=== PATIENT | female | born 1995 | race American Indian/Alaskan Native ===

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

== ENCOUNTER 2017-03-25 10:10 | Emergency (ER) | payer SELFPAY ==
[2017-03-25 10:14] VITALS: BP 123/67
== END 2017-03-25 15:46 | disposition left against medical advice (07) ==
LOC: ED 10:10
DX: J11.1 Influenza due to unidentified influenza virus with other respiratory manifestations (principal); Z53.21 Procedure and treatment not carried out due to patient leaving prior to being seen by health care provider

== ENCOUNTER 2019-01-08 13:27 | Emergency (ER) | payer SELFPAY ==
--- NOTE | 2019-01-08 14:52 | Emergency Department Report ---
Blank Doc - Documentation Documentation: 23-year-old female that presents with vaginal discharge and pelvic pain. This initial assessment/diagnostic orders/clinical plan/treatment(s) is/are subject to change based on patient's health status, clinical progression and re- assessment by fellow clinical providers in the ED. Further treatment and workup at subsequent clinical providers discretion. Patient/guardians urged not to elope from the ED as their condition may be serious if not clinically assessed and managed. Initial orders include: 1- Patient sent to [facility] for further evaluation and treatment 2- UA 3- pelvic exam to be done
[2019-01-08 16:43] LABS: HCG Qualitative,Urine Negative (Negative)
[2019-01-08 16:47] LABS: Bacteria,Urine 3+ /HPF (Negative); Bilirubin,Urine NEG (Negative); Blood,Urine NEG (Negative); Color,Urine Yellow (Yellow); Mucus,Urine 2+ /HPF
--- NOTE | 2019-01-08 17:33 | Emergency Department Report ---
ED Female HPI - General Chief complaint: Urogenital-Female Stated complaint: CRAMPS/PAIN Time Seen by Provider: 01/08/19 14:51 Source: patient Mode of arrival: Ambulatory Limitations: No Limitations - History of Present Illness Initial comments: This is a 23-year-old -[place]ian female who presents to the emergency room with pelvic cramps and vaginal discharge for 2 weeks. Patient states she meant appointment with a women's clinic in [place] and unable to get an appointment until 2 weeks from now. She reports increasing pelvic pain that is constant cramping intensity. Her last menstrual period was 12/27/2018, 0. She denies urinary frequency, urgency, dysuria, fever, chills, nausea or vomiting. MD Complaint: vaginal discharge, pelvic pain, possible STD Onset/Timin -: week(s) Location: suprapubic Radiation: non-radiating Severity: mild Severity scale (0 -10): 3 Quality: cramping Consistency: constant Improves with: none Worsens with: none Are you Now?: No Last Menstrual Period: 12/27/18 EDC: 10/03/19 Associated Symptoms: vaginal discharge, abdominal pain. denies: vaginal bleeding, nausea/vomiting, fever/chills, headaches, loss of appetite, dysuria, hematuria, rash, seizure, shortness of breath, syncope, weakness - Related Data Sexually active: Yes : 0 Previous Rx's Medication Instructions Recorded Last Taken Type Naproxen [Naprosyn] 500 mg PO BID #14 tablet 03/19/18 Unknown Rx Sulfamethoxazole/Trimethoprim 1 each PO BID #6 tablet 01/08/19 Unknown Rx [Bactrim DS TAB] metroNIDAZOLE [Metronidazole] 250 mg PO BID #14 tablet 01/08/19 Unknown Rx Allergies Allergy/AdvReac Type Severity Reaction Status Date / Time No Known Allergies Allergy Verified 03/19/18 11:00 ED Review of Systems ROS: Stated complaint: CRAMPS/PAIN Other details as noted in HPI Constitutional: denies: chills, fever Respiratory: denies: cough, shortness of breath, wheezing Cardiovascular: denies: chest pain, palpitations Gastrointestinal: abdominal pain. denies: nausea, diarrhea Genitourinary: discharge. denies: urgency, dysuria Musculoskeletal: denies: back pain, joint swelling, arthralgia Skin: denies: rash, lesions Neurological: denies: headache, weakness, paresthesias Psychiatric: denies: anxiety, depression ED Past Medical Hx - Past Medical History Previous Medical History?: No - Surgical History Past Surgical History?: No - Social History Smoking Status: Never Smoker Substance Use Type: Alcohol - Medications Home Medications: Home Medications Medication Instructions Recorded Confirmed Last Taken Type Naproxen [Naprosyn] 500 mg PO BID #14 tablet 03/19/18 Unknown Rx Sulfamethoxazole/Trimethoprim 1 each PO BID #6 tablet 01/08/19 Unknown Rx [Bactrim DS TAB] metroNIDAZOLE [Metronidazole] 250 mg PO BID #14 tablet 01/08/19 Unknown Rx ED Physical Exam - General Limitations: No Limitations General appearance: alert, in no apparent distress - Respiratory Respiratory exam: Present: normal lung sounds bilaterally. Absent: respiratory distress - Cardiovascular Cardiovascular Exam: Present: regular rate, normal rhythm. Absent: systolic murmur, diastolic murmur, rubs, gallop - GI/Abdominal GI/Abdominal exam: Present: soft, tenderness (suprapubic), normal bowel sounds. Absent: distended, guarding, rebound, rigid, organomegaly - External exam: Present: normal external exam Speculum exam: Present: vaginal discharge (malodorous yellowish green), tissue. Absent: erythema, cervical discharge, vaginal bleeding, foreign body, laceration Bi-manual exam: Present: normal bi-manual exam. Absent: cervical motion tendernes, adnexal tenderness, adnexal mass, uterine enlargement, uterine tenderness - Back Exam Back exam: Absent: CVA tenderness (R), CVA tenderness (L) - Neurological Exam Neurological exam: Present: alert, oriented X3, normal gait - Psychiatric Psychiatric exam: Present: normal affect, normal mood - Skin Skin exam: Present: warm, dry, intact, normal color. Absent: rash ED Course Vital Signs 01/08/19 14:51 Temperature 98.4 F Pulse Rate 77 Respiratory 16 Rate Blood Pressure 104/63 O2 Sat by Pulse 100 Oximetry ED Medical Decision Making - Lab Data Lab Results 01/08/19 Range/Units 16:18 Urine Color Yellow (Yellow) Urine Turbidity Cloudy (Clear) Urine pH 7.0 (5.0-7.0) Ur Specific Hammett 1.025 (1.003-1.030) Urine Protein 30 mg/dl (Negative) mg/dL Urine Glucose (UA) Neg (Negative) mg/dL Urine Ketones Neg (Negative) mg/dL Urine Blood Neg (Negative) Urine Nitrite Pos (Negative) Ur Reducing Substances Not Reportable Urine Bilirubin Neg (Negative) Urine Ictotest Not Reportable Urine Urobilinogen 2.0 (<2.0) mg/dL Ur Leukocyte Esterase Neg (Negative) Urine WBC (Auto) 1.0 (0.0-6.0) /HPF Urine RBC (Auto) 1.0 (0.0-6.0) /HPF U Epithel Cells (Auto) 13.0 (0-13.0) /HPF Urine Bacteria (Auto) 3+ (Negative) /HPF Urine Mucus 2+ /HPF Urine HCG, Qual Negative (Negative) - Medical Decision Making This is a 23-year-old -[place]ian female who presents with vaginal discharge and pelvic pain for 2 weeks. Patient was examined by me. Vitals are stable and in no acute distress. Pelvic exam performed. Urinalysis positive for nitrates, negative test, wet prep positive for clue cells, negat dipti Trichomonas and yeast. Gonorrhea and chlamydia pending. Empirically treated with Rocephin 250 mg IM and azithromycin 1 g by mouth. Cervicitis and acute cystitis. Start metronidazole and Bactrim. Discharged home in stable condition. Discussed prevention options. F/U with PCP or Health Department. Critical care attestation.: If time is entered above; I have spent that time in minutes in the direct care of this critically ill patient, excluding procedure time. ED Disposition Clinical Impression: Cervicitis, STD exposure, Bacterial vaginitis, Vaginal discharge Acute cystitis Qualifiers: Hematuria presence: without hematuria Qualified Code(s): N30.00 - Acute cystitis without hematuria Disposition: TO HOME OR SELFCARE Is pt being admited?: No Condition: Stable Instructions: Cervicitis (ED), Bacterial Vaginosis (ED) Additional Instructions: Avoid drinking alcohol while taking antibiotics and for 24 hours after completion. Continue safe sexual intercourse. Follow up with Primary Care Provider or health department. Prescriptions: Sulfamethoxazole/Trimethoprim [Bactrim DS TAB] 1 each PO BID #6 tablet metroNIDAZOLE [Metronidazole] 250 mg PO BID #14 tablet Referrals: [facility] [Outside] - 3-5 Days [facility] [Outside] - 3-5 Days [facility] [Provider Group] - 3-5 Days [facility] [Provider Group] - 3-5 Days Forms: STI Treatment and Prevention Time of Disposition: 17:36
[2019-01-08 18:08] VITALS: BP 110/64
== END 2019-01-08 18:06 | disposition home or self-care (01) ==
LOC: ED 13:27
DX: N30.00 Acute cystitis without hematuria (principal); N72 Inflammatory disease of cervix uteri; N76.0 Acute vaginitis; B96.89 Other specified bacterial agents as the cause of diseases classified elsewhere
CPT/HCPCS: 81001; 81025; 87210; 87591

== ENCOUNTER 2019-12-17 13:13 | Emergency (ER) | payer SELFPAY ==
[2019-12-17 14:27] VITALS: BP 116/77
--- NOTE | 2019-12-17 14:59 | Emergency Department Report ---
Blank Doc - Documentation Documentation: 24-year-old female that presents with vaginal discharge and pain. This initial assessment/diagnostic orders/clinical plan/treatment(s) is/are subject to change based on patient's health status, clinical progression and re- assessment by fellow clinical providers in the ED. Further treatment and workup at subsequent clinical providers discretion. Patient/guardians urged not to elope from the ED as their condition may be serious if not clinically assessed and managed. Initial orders include: 1- Patient sent to [facility] for further evaluation and treatment 2- UA 3- pelvic exam to be done
[2019-12-17 15:28] LABS: HCG Qualitative,Urine Negative (Negative)
[2019-12-17 15:30] LABS: Bilirubin,Urine NEG (Negative); Blood,Urine NEG (Negative); Color,Urine Yellow (Yellow); Mucus,Urine 2+ /HPF
[2019-12-17] MEDS ORDERED: LIDOCAINE-MPF (1%) 10 MG/1 ML VIAL 5 ML INFILTRATI ONE (20:04)
[2019-12-17] MEDS ORDERED: ONDANSETRON 4 MG ODT TAB PO ONE (20:04)
[2019-12-17] MEDS ORDERED: AZITHROMYCIN 250 MG TAB PO ONE (20:04)
[2019-12-17] MEDS ORDERED: ACETAMINOPHEN 500 MG TAB PO ONE (20:05)
--- NOTE | 2019-12-17 21:08 | Emergency Department Report ---
ED Female HPI - General Chief complaint: Urogenital-Female Stated complaint: VAG PAINS Time Seen by Provider: 12/17/19 14:58 Source: patient Mode of arrival: Ambulatory Limitations: No Limitations - History of Present Illness Initial comments: Patient is a nulliparous 24-year-old -Argent[place] female with no past medical history who presents to the ED with complaint of acute onset persistent vaginal pain with thick yellowish-white vaginal discharge with malodorous smell, suprapubic pressure and pain, urinary frequency and urgency and dysuria for the last 1 week, worse in the last 2 days. Patient states that her last unprotected sexual intercourse was over 6 days ago with her regular partner. Patient denies vaginal bleeding, fever, chills, nausea, vomiting, abdominal pain, dizziness, syncope, low back pain, chest pain or shortness of breath, sore throat, headache, change in vision, cough or dyspareunia. MD Complaint: vaginal discharge, dysuria, pelvic pain (suprapubic), other (vaginal pain) -: Sudden, week(s) (1) Location: suprapubic, other (vaginal) Radiation: non-radiating Severity: moderate Severity scale (0 -10): 4 Quality: burning, aching Consistency: constant Improves with: none Worsens with: urination, intercourse, movement Are you Now?: No Last Menstrual Period: 12/09/19 EDC: 09/14/20 Associated Symptoms: denies other symptoms, vaginal discharge, dysuria. denies: vaginal bleeding, abdominal pain, nausea/vomiting, headaches, loss of appetite, hematuria, rash, seizure, shortness of breath, syncope, weakness, other - Related Data Sexually active: Yes : 0 Para: 0 A: 0 Previous Rx's Medication Instructions Recorded Last Taken Type Naproxen [Naprosyn] 500 mg PO BID #14 tablet 03/19/18 Unknown Rx Sulfamethoxazole/Trimethoprim 1 each PO BID #6 tablet 01/08/19 Unknown Rx [Bactrim DS TAB] metroNIDAZOLE [Metronidazole] 250 mg PO BID #14 tablet 01/08/19 Unknown Rx Doxycycline Hyclate 100 mg PO Q12H #20 tablet 12/17/19 Unknown Rx Fluconazole (Nf) [Diflucan TAB] 150 mg PO ONCE #2 tablet 12/17/19 Unknown Rx Ibuprofen [Motrin] 600 mg PO Q8H PRN #20 tablet 12/17/19 Unknown Rx Ondansetron [Zofran Odt] 4 mg PO Q6HR PRN #15 tab.rapdis 12/17/19 Unknown Rx metroNIDAZOLE [Flagyl] 500 mg PO Q12HR #14 tab 12/17/19 Unknown Rx Allergies Allergy/AdvReac Type Severity Reaction Status Date / Time No Known Allergies Allergy Verified 03/19/18 11:00 ED Review of Systems ROS: Stated complaint: VAG PAINS Other details as noted in HPI Constitutional: denies: chills, fever Eyes: denies: eye pain, eye discharge, vision change ENT: denies: ear pain, throat pain Respiratory: denies: cough, shortness of breath, wheezing Cardiovascular: denies: chest pain, palpitations Endocrine: no symptoms reported Gastrointestinal: denies: abdominal pain, nausea, vomiting, diarrhea Genitourinary: urgency, dysuria, frequency, discharge, other (vaginal pain). denies: abnormal menses, dyspareunia Musculoskeletal: denies: back pain, joint swelling, arthralgia Skin: denies: rash, lesions Neurological: denies: headache, weakness, paresthesias Psychiatric: denies: anxiety, depression Hematological/Lymphatic: denies: easy bleeding, easy bruising ED Past Medical Hx - Past Medical History Previous Medical History?: No - Surgical History Past Surgical History?: No - Social History Smoking Status: Never Smoker Substance Use Type: None - Medications Home Medications: Home Medications Medication Instructions Recorded Confirmed Last Taken Type Naproxen [Naprosyn] 500 mg PO BID #14 tablet 03/19/18 Unknown Rx Sulfamethoxazole/Trimethoprim 1 each PO BID #6 tablet 01/08/19 Unknown Rx [Bactrim DS TAB] metroNIDAZOLE [Metronidazole] 250 mg PO BID #14 tablet 01/08/19 Unknown Rx Doxycycline Hyclate 100 mg PO Q12H #20 12/17/19 Unknown Rx Fluconazole (Nf) [Diflucan TAB] 150 mg PO ONCE #2 tablet 12/17/19 Unknown Rx Ibuprofen [Motrin] 600 mg PO Q8H PRN #20 tablet 12/17/19 Unknown Rx Ondansetron [Zofran Odt] 4 mg PO Q6HR PRN #15 tab.rapdis 12/17/19 Unknown Rx metroNIDAZOLE [Flagyl] 500 mg PO Q12HR #14 tab 12/17/19 Unknown Rx ED Physical Exam - General Limitations: No Limitations General appearance: alert, in no apparent distress - Head Head exam: Present: atraumatic, normocephalic, normal inspection - Eye Eye exam: Present: normal appearance, PERRL, EOMI Pupils: Present: normal accommodation - ENT ENT exam: Present: normal exam, normal orophraynx, mucous membranes moist, TM's normal bilaterally, normal external ear exam - Neck Neck exam: Present: normal inspection, full ROM - Respiratory Respiratory exam: Present: normal lung sounds bilaterally. Absent: respiratory distress, wheezes, rales, rhonchi, chest wall tenderness, accessory muscle use, decreased breath sounds, prolonged expiratory - Cardiovascular Cardiovascular Exam: Present: regular rate, normal rhythm, normal heart sounds. Absent: systolic murmur, diastolic murmur, rubs, gallop - GI/Abdominal GI/Abdominal exam: Present: soft, normal bowel sounds. Absent: tenderness, guarding, rebound, hyperactive bowel sounds, hypoactive bowel sounds, organomegaly - External exam: Present: normal external exam Speculum exam: Present: vaginal discharge, cervical discharge Bi-manual exam: Present: normal bi-manual exam, cervical motion tendernes, adnexal tenderness, uterine tenderness, other (Female process safety engineering technologist Ms. Aguilar present during the pelvic exam) - Extremities Exam Extremities exam: Present: normal inspection, full ROM, normal capillary refill - Back Exam Back exam: Present: normal inspection, full ROM. Absent: tenderness, CVA tenderness (R), CVA tenderness (L), muscle spasm, paraspinal tenderness, verte bral tenderness - Neurological Exam Neurological exam: Present: alert, oriented X3, CN II-XII intact, normal gait, reflexes normal - Psychiatric Psychiatric exam: Present: normal affect, normal mood - Skin Skin exam: Present: warm, dry, intact, normal color. Absent: rash ED Course Vital Signs 12/17/19 14:24 Pulse Rate 77 Respiratory 16 Rate Blood Pressure 116/77 O2 Sat by Pulse 100 Oximetry ED Medical Decision Making - Medical Decision Making This is a nulliparous 24-year-old -[place]gent[place] female with no past medical history who presents to the ED with complaint of acute onset persistent vaginal pain with thick yellowish-white vaginal discharge with malodorous smell, suprapubic pressure and pain, urinary frequency and urgency and dysuria for the last 1 week, worse in the last 2 days. Patient states that her last unprotected sexual intercourse was over 6 days ago with her regular partner. In the ED, patient is alert and oriented x3 and is not in any distress. Patient was treated in the ED empirically for gonorrhea and chlamydia based on the risk and exposure as well as based on the physical exam findings of cervical motion tende rness consistent with PID. Wet prep test was positive for bacterial vaginosis and Yissel vaginitis. Urinalysis was unremarkable. On reevaluation, patient felt better and was discharged home on medications including antibiotics and antifungal medications. Patient was advised to follow-up at the [facility] for further evaluation and STD testing including HIV and syphilis. Patient was advised return to the ED immediately if symptoms get worse. - Differential Diagnosis PID; UTI; BV; Yissel vaginitis; Trichomonas; STD Critical care attestation.: If time is entered above; I have spent that time in minutes in the direct care of this critically ill patient, excluding procedure time. ED Disposition Clinical Impression: Acute pelvic inflammatory disease (PID), Vaginitis due to Yissel, Bacterial vaginosis, Exposure to STD Disposition: DC-01 TO HOME OR SELFCARE Is pt being admited?: No Does the pt Need Aspirin: No Condition: Stable Instructions: Bacterial Vaginosis (ED), Bacterial Vaginosis, [id number], Safe Sex, Pelvic Inflammatory Disease, [id number], Pelvic Inflammatory Disease, Vaginitis, [id number], Vaginal Yeast Infection, Adult Additional Instructions: Take medication with food, drink plenty of fluids and follow-up with your primary care physician in 5 to 7 days for reevaluation. Consider following up with the [facility] department for further STD testing including HIV and syphilis. Return to the ED immediately if symptoms get worse. Observe safe sexual practices to minimize STD exposure and infection. Prescriptions: Fluconazole (Nf) [Diflucan TAB] 150 mg PO ONCE #2 tablet Doxycycline Hyclate 100 mg PO Q12H #20 tablet. metroNIDAZOLE [Flagyl] 500 mg PO Q12HR #14 tab Ibuprofen [Motrin] 600 mg PO Q8H PRN #20 tablet PRN Reason: Pain Ondansetron [Zofran Odt] 4 mg PO Q6HR PRN #15 tab.rapdis PRN Reason: Nausea Referrals: [facility] [Outside] - 3-5 Days [facility] [Provider Group] - 3-5 Days Forms: STI Treatment and Prevention Time of Disposition: 21:12 Print Language: KOREAN
== END 2019-12-17 21:30 | disposition home or self-care (01) ==
LOC: ED 13:13
DX: N73.8 Other specified female pelvic inflammatory diseases (principal); N76.0 Acute vaginitis; B96.89 Other specified bacterial agents as the cause of diseases classified elsewhere; B37.3 Candidiasis of vulva and vagina
CPT/HCPCS: 81001; 81025; 87210; 87591; 96372; 99284; J0696; Q0162

== ENCOUNTER 2020-03-27 13:38 | Emergency (ER) | payer SELFPAY | END 2020-03-27 14:45 | disposition left against medical advice (07) | LOC: ED 13:38 | DX: R10.2 Pelvic and perineal pain (principal); Z53.21 Procedure and treatment not carried out due to patient leaving prior to being seen by health care provider ==